=== PATIENT | female | born 1980 | race Caucasian/White ===

== ENCOUNTER → 2017-02-20 | Outpatient (CLI) | payer OTHER, BC | LOC: LAB 11:25 | DX: Z02.1 Encounter for pre-employment examination (principal) ==

== ENCOUNTER → 2017-02-27 | Outpatient (CLI) | payer OTHER | LOC: RAD 14:28 | DX: Z02.1 Encounter for pre-employment examination (principal) | CPT/HCPCS: 71020 ==

== ENCOUNTER 2021-02-02 12:35 | Inpatient (IN) | payer BC ==
[~2021-02-02] VITALS: Ht 157.5 cm; Wt 90.7 kg
[~2021-02-02 12:35] MED LIST: BACTRIM DS TAB1 EACH PO
[2021-02-02 13:41] LABS: HEMOGLOBIN 13.7 gm/dl (12.3-15.3); RED BLOOD COUNT 4.35 M/UL (4.00-5.10)
[2021-02-02 14:11] LABS: BUN/CREATININE RATIO 5 (0-10)
[2021-02-03 04:54] LABS: HEMOGLOBIN 12.4 gm/dl (12.3-15.3); RED BLOOD COUNT 3.98 M/UL (4.00-5.10)
[2021-02-03 05:07] LABS: BUN/CREATININE RATIO 6 (0-10)
[2021-02-04 04:07] LABS: HEMOGLOBIN 11.6 gm/dl (12.3-15.3); RED BLOOD COUNT 3.75 M/UL (4.00-5.10); WHITE BLOOD COUNT 8.6 K/UL (4.5-11.0)
[2021-02-04 04:38] LABS: BUN/CREATININE RATIO 5 (0-10)
[2021-02-04] MEDS ORDERED: AUGMENTIN 875-1 EACH PO (08:20)
[2021-02-04] MEDS ORDERED: HYDROCODON-ACE1 EAC2 PO (08:20)
== END 2021-02-04 09:43 | disposition home or self-care (01) | DRG 392 ==
LOC: ER1 12:35 → CDU 15:42 → MED SURG 4 19:15
PROVIDERS: Physician Assistant Medical; ADMIT Surgery
DX: K57.20 Diverticulitis of large intestine with perforation and abscess without bleeding (principal); Z98.51 Tubal ligation status; F17.200 Nicotine dependence, unspecified, uncomplicated; Z20.822 Contact with and (suspected) exposure to COVID-19
CPT/HCPCS: 36415; 80048; 80053; 81001; 83605; 85025; 85652; 86140; 87040; 96374; 96375; 99285; J1650; J1885; J2270; J2405; J2543; J7030; Q9967; U0002